=== PATIENT | female | born 1995 | race Caucasian/White ===

== ENCOUNTER 2020-12-14 07:33 | Outpatient (CLI) | payer BC, OTHER ==
[2020-12-14 10:03] LABS: HEMOGLOBIN 10.7 gm/dl (12.3-15.3); RED BLOOD COUNT 3.63 M/UL (4.00-5.10); WHITE BLOOD COUNT 13.4 K/UL (4.5-11.0)
== END 2020-12-14 10:14 | disposition other institution (70) ==
LOC: GENOP 07:33
PROVIDERS: Obstetrics & Gynecology
DX: O99.891 Other specified diseases and conditions complicating pregnancy (principal); M54.9 Dorsalgia, unspecified; R10.9 Unspecified abdominal pain; Z3A.32 32 weeks gestation of pregnancy; Z20.822 Contact with and (suspected) exposure to COVID-19
CPT/HCPCS: 36415; 51702; 76815; 81001; 85025; 86762; 86900; 86901; 96360; 96365; 96366; 96367; 96372; J0610; J3370; J3475; J7070; J7120; U0002